=== PATIENT | male | born 1985 | race African-American/Black ===

== ENCOUNTER 2020-02-06 19:43 | Emergency (ER) | payer MEDICAID ==
[~2020-02-06] VITALS: Ht 167.6 cm; Wt 62.0 kg
[2020-02-06] MEDS ORDERED: AZITHROMYCIN 500 MG TABLET PO ONE (20:30)
[2020-02-06] MEDS ORDERED: LIDOCAINE HCL 1% 20ML VIAL (Pyxis) INJ INFIL ONE (20:30)
[2020-02-06] MEDS ORDERED: CEFTRIAXONE SODIUM 250 MG/VIAL IM ONE (20:30)
[2020-02-06 21:26] VITALS: BP 118/72
== END 2020-02-06 21:27 | disposition home or self-care (01) ==
LOC: ER 19:43
DX: N34.2 Other urethritis (principal)
CPT/HCPCS: 96372; 99283; J0696; J3490